=== PATIENT | female | born 1995 | race Two or more races ===

== ENCOUNTER 2024-12-21 23:03 | Emergency (ER) | payer OTHER ==
[~2024-12-21] VITALS: Ht 165.1 cm; Wt 88.6 kg
[2024-12-21 23:06] VITALS: TEMP 98
[2024-12-21 23:18] LABS: PLATELET COUNT (AUTO) 401 K/uL (150-450); RED BLOOD CELL COUNT(AUTO) 4.27 MIL/uL (4.00-5.20); RED CELL DISTRIBUTION WIDTH 13.8 % (11.5-14.5); WHITE BLOOD COUNT (AUTO) 11.3 K/uL (4.5-11.0)
[2024-12-21 23:25] LABS: CALCIUM, TOTAL 7.9 mg/dL (8.8-10.5); CREATININE 0.68 mg/dL (0.60-1.30); GLOMERULAR FILTR. RATE CALC > 60 mL/min (>60); GLUCOSE,RANDOM 81 mg/dL (70-110); SODIUM SERUM 140 mmol/L (136-145); UREA NITROGEN, BLOOD 14 mg/dL (7-18)
[2024-12-22] MEDS ORDERED: METH4TAB3 PO (01:38)
[2024-12-22] MEDS ORDERED: DIPH25CA85 PO (01:38)
[2024-12-22 01:57] VITALS: BP 122/56; PULSE 89; RESP 18; O2SAT 98
== END 2024-12-22 02:11 | disposition home or self-care (01) ==
LOC: EMS 23:03
DX: T78.40XA Allergy, unspecified, initial encounter (principal); Z90.49 Acquired absence of other specified parts of digestive tract; Z98.51 Tubal ligation status; Z98.891 History of uterine scar from previous surgery; Y92.89 Other specified places as the place of occurrence of the external cause
CPT/HCPCS: 99284; 96374; 96375; 80048; 84703; 85025; 36415; J2919; J1200

== ENCOUNTER 2025-02-13 19:58 | Emergency (ER) | payer OTHER ==
[~2025-02-13] VITALS: Ht 167.6 cm; Wt 75.0 kg
[~2025-02-13 19:58] MED LIST: DIPH25CA85 PO; METH4TAB3 PO
[2025-02-13 20:11] VITALS: BP 129/67; PULSE 80; RESP 16; TEMP 98.6; O2SAT 100
== END 2025-02-13 21:27 | disposition left against medical advice (07) ==
LOC: EMS 19:59
DX: T78.09XA Anaphylactic reaction due to other food products, initial encounter (principal); Z53.21 Procedure and treatment not carried out due to patient leaving prior to being seen by health care provider; Y92.89 Other specified places as the place of occurrence of the external cause
CPT/HCPCS: 99281; Z7502